=== PATIENT | male | born 1980 | race Caucasian/White ===

== ENCOUNTER 2018-04-04 21:28 | Emergency (ER) | payer MEDICAID ==
[~2018-04-04] VITALS: Ht 175.3 cm; Wt 59.1 kg
[2018-04-04] MEDS ORDERED: cloNIDine 0.1 mg tablet PO ONE (22:55)
[2018-04-04] MEDS ORDERED: CLON-529 PO (23:50)
[2018-04-04 23:56] VITALS: BP 106/60
== END 2018-04-05 00:01 | disposition home or self-care (01) ==
LOC: ER 21:29
DX: F11.23 Opioid dependence with withdrawal (principal); Z59.0 Homelessness
CPT/HCPCS: 71045; 93005; 99284